=== PATIENT | female | born 1980 | race Caucasian/White ===

== ENCOUNTER 2018-05-23 19:15 | Inpatient (IN) | payer SELFPAY ==
--- NOTE | 2018-05-06 22:55 | NUR ---
MICHELLE LONGORIA Viktoriya admitted to room 432-1, with an admitting diagnosis of ETOH intoxication, on 05/23/18 from ER via , accompanied by ER staff and . MICHELLE LONGORIA introduced to surroundings, call light, bed controls, phone, TV, temperature control, lights, meal times, smoking policy, visitor policy, side rail policy, bathrooms and showers. Patient Rights given to patient in the handbook. MICHELLE LONGORIA verbalizes understanding that [facility] is not responsible for the loss or damage to any personal effects or valuables that are kept in the patients possession during their hospitalization.
[~2018-05-23] VITALS: Ht 157.5 cm; Wt 57.7 kg
[2018-05-23 20:31] LABS: BILIRUBIN,URINE NEGATIVE (NEGATIVE); CLARITY,URINE CLEAR; COLOR,URINE YELLOW; GLUCOSE, URINE (UA) NEGATIVE (NEGATIVE); KETONES,URINE NEGATIVE (NEGATIVE); LEUKOCYTE ESTERASE ,URINE NEGATIVE (NEGATIVE); NITRITE,URINE NEGATIVE (NEGATIVE); PH,URINE 7 (5-9); PROTEIN,URINE NEGATIVE (NEGATIVE); UROBILINOGEN,URINE NORMAL (NORMAL)
[2018-05-23 20:39] LABS: BASOPHILS % (AUTO) 0 % (0-10); EOSINOPHILS # (AUTO) 0.2 10^3/uL (0.0-0.3); EOSINOPHILS % (AUTO) 3 % (0-10); HEMATOCRIT 42 % (35-52); HEMOGLOBIN 14.5 G/DL (11.5-16.0); LYMPHOCYTES # (AUTO) 1.9 X 10^3 (1.0-4.0); LYMPHOCYTES % (AUTO) 22 % (12-44); MEAN CORPUSCULAR HEMOGLOBIN 30 PG (25-34); MEAN CORPUSCULAR HGB CONC 34 G/DL (32-36); MEAN CORPUSCULAR VOLUME 87 FL (80-99); MONOCYTES # (AUTO) 0.4 X 10^3 (0.0-1.0); MONOCYTES % (AUTO) 5 % (0-12); NEUTROPHILS # (AUTO) 5.8 X 10^3 (1.8-7.8); NEUTROPHILS % (AUTO) 70 % (42-75); PLATELET COUNT 220 10^3/uL (130-400); RED BLOOD COUNT 4.82 10^6/uL (4.35-5.85); RED CELL DISTRIBUTION WIDTH 13.1 % (10.0-14.5); WHITE BLOOD COUNT 8.4 10^3/uL (4.3-11.0)
[2018-05-23 20:44] LABS: BACTERIA,URINE TRACE /HPF
[2018-05-23 20:48] LABS: AMPHETAMINE SCREEN, URINE NEGATIVE (NEGATIVE); BARBITURATE SCREEN URINE NEGATIVE (NEGATIVE); BENZODIAZEPINES SCREEN URINE NEGATIVE (NEGATIVE); CANNABINOID SCREEN, URINE NEGATIVE (NEGATIVE); COCAINE SCREEN URINE NEGATIVE (NEGATIVE); METHADONE STAT NEGATIVE (NEGATIVE); METHAMPHETAMINE SCREEN URINE S NEGATIVE (NEGATIVE); OPIATE SCREEN URINE NEGATIVE (NEGATIVE); OXYCODONE STAT NEGATIVE (NEGATIVE); PROPOXYPHENE STAT NEGATIVE (NEGATIVE); TRICYCLIC ANTIDEPRESSANTS SCRE NEGATIVE (NEGATIVE)
[2018-05-23 21:08] LABS: ALANINE AMINOTRANSFERASE 10 U/L (0-55); ALBUMIN 4.2 GM/DL (3.2-4.5); ALKALINE PHOSPHATASE 76 U/L (40-136); BILIRUBIN,TOTAL 0.4 MG/DL (0.1-1.0); BUN/CREATININE RATIO 14; CALCIUM 8.3 MG/DL (8.5-10.1); CARBON DIOXIDE 22 MMOL/L (21-32); CHLORIDE 108 MMOL/L (98-107); CREATININE SERUM 0.72 MG/DL (0.60-1.30); GFR ESTIMATED > 60; GLUCOSE 91 MG/DL (70-105); POTASSIUM 3.5 MMOL/L (3.6-5.0); SALICYLATE < 5.0 MG/DL (5.0-20.0); SODIUM 143 MMOL/L (135-145)
[2018-05-23 21:12] LABS: ACETAMINOPHEN < 10 UG/ML (10-30)
[2018-05-23] MEDS ORDERED: LORazepam INJ 2 MG/ML (ATIVAN) VIAL IVP ONE (21:45)
[2018-05-23] MEDS: NS IV 1000 ML 1,000 ML IV SCH ×2 (22:02→22:09)
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
[2018-05-23 22:55] VITALS: BP 151/86
[2018-05-23] MEDS ORDERED: 1/2 NS IV SOLUTION 1,000 ML IV PRN (23:08)
[2018-05-23] MEDS ORDERED: SENNA W/DOCUSATE (SENOKOT S) TABLET PO PRN (23:15)
[2018-05-23] MEDS ORDERED: ANTACID SUSP 30 ML UDC (MYLANTA) PO PRN (23:15)
[2018-05-23] MEDS ORDERED: D5 1/2 NS 1000 ML IV SOLUTION 1,000 ML IV PRN (23:15)
[2018-05-23] MEDS ORDERED: ONDANSETRON 4 MG/2 ML (SDV) Z0FRAN IV PRN (23:15)
[2018-05-23] MEDS ORDERED: LORazepam INJ 2 MG/ML (ATIVAN) VIAL IM/IV PRN (23:15)
[2018-05-23] MEDS ORDERED: D5 1/2 NS W/KCL 20 MEQ/L 1,000 ML IV ONE (23:22)
[2018-05-23] MEDS: D5 1/2 NS W/KCL 20 MEQ/L 1,000 ML IV SCH (23:33)
[2018-05-23] MEDS ORDERED: LORazepam INJ 2 MG/ML (ATIVAN) VIAL ONE (23:58)
[2018-05-24] VITALS (12 sets, daily range): BP systolic 92–187; BP diastolic 52–88
[2018-05-24] MEDS: LORazepam INJ 2 MG/ML (ATIVAN) VIAL IV PRN ×10 (00:07→20:05)
[2018-05-24 05:22] LABS: BASOPHILS % (AUTO) 0 % (0-10); EOSINOPHILS # (AUTO) 0.2 10^3/uL (0.0-0.3); EOSINOPHILS % (AUTO) 3 % (0-10); HEMATOCRIT 34 % (35-52); HEMOGLOBIN 11.9 G/DL (11.5-16.0); LYMPHOCYTES # (AUTO) 2.4 X 10^3 (1.0-4.0); LYMPHOCYTES % (AUTO) 43 % (12-44); MEAN CORPUSCULAR HEMOGLOBIN 31 PG (25-34); MEAN CORPUSCULAR HGB CONC 35 G/DL (32-36); MEAN CORPUSCULAR VOLUME 88 FL (80-99); MEAN PLATELET VOLUME 10.9 FL (7.4-10.4); MONOCYTES # (AUTO) 0.5 X 10^3 (0.0-1.0); MONOCYTES % (AUTO) 9 % (0-12); NEUTROPHILS # (AUTO) 2.5 X 10^3 (1.8-7.8); NEUTROPHILS % (AUTO) 45 % (42-75); PLATELET COUNT 195 10^3/uL (130-400); RED CELL DISTRIBUTION WIDTH 13.2 % (10.0-14.5); WHITE BLOOD COUNT 5.5 10^3/uL (4.3-11.0)
[2018-05-24 05:52] LABS: ALANINE AMINOTRANSFERASE 8 U/L (0-55); ALBUMIN 3.6 GM/DL (3.2-4.5); ALKALINE PHOSPHATASE 69 U/L (40-136); BILIRUBIN,TOTAL 0.2 MG/DL (0.1-1.0); BUN/CREATININE RATIO 16; CALCIUM 7.9 MG/DL (8.5-10.1); CARBON DIOXIDE 21 MMOL/L (21-32); CHLORIDE 110 MMOL/L (98-107); CREATININE SERUM 0.68 MG/DL (0.60-1.30); GFR ESTIMATED > 60; GLUCOSE 102 MG/DL (70-105); POTASSIUM 3.7 MMOL/L (3.6-5.0); SODIUM 142 MMOL/L (135-145); TOTAL PROTEIN 6.1 GM/DL (6.4-8.2)
[2018-05-24] MEDS: D5 1/2 NS W/KCL 20 MEQ/L 1,000 ML IV SCH ×3 (06:38→19:52)
[2018-05-24] MEDS ORDERED: FLU QUADRIvalent (5+ YOA) 2018-2019 (AFLURIA) 0.5 ML IM ONE (07:30)
[2018-05-24] MEDS ORDERED: THIAMINE INJECTION 100 MG, FOLIC ACID INJECTION 1 MG, MAGNESIUM SULFATE 2 GM, VITAMIN M... IV SCH ×5 (09:00)
[2018-05-24] MEDS: ONDANSETRON 4 MG (ZOFRAN) ORAL DISSOLVE TAB SL PRN ×3 (10:54→20:04)
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
[2018-05-24] MEDS: ACETAMINOPHEN 500 MG TAB (TYLENOL) PO PRN ×2 (14:51→20:04)
[2018-05-24] MEDS: NICOTINE 14 MG (NICODERM) PATCH TD SCH (15:33)
[2018-05-24] MEDS: LORazepam 1 MG (ATIVAN) TAB PO PRN (16:37)
[2018-05-24] MEDS: ONDANSETRON 4 MG/2 ML (SDV) Z0FRAN IV PRN (17:43)
[2018-05-25] MEDS: LORazepam INJ 2 MG/ML (ATIVAN) VIAL IV PRN ×3 (00:04→08:09)
[2018-05-25] MEDS: ONDANSETRON 4 MG/2 ML (SDV) Z0FRAN IV PRN ×2 (00:04→04:32)
[2018-05-25] MEDS: D5 1/2 NS W/KCL 20 MEQ/L 1,000 ML IV SCH ×2 (00:05→04:33)
[2018-05-25] MEDS: ONDANSETRON 4 MG (ZOFRAN) ORAL DISSOLVE TAB SL PRN ×3 (02:14→14:32)
[2018-05-25 03:51] VITALS: BP 187/88
--- NOTE | 2018-05-25 04:10 | NUR ---
Dr. Jacobson notified of pt being bradycardic at times with HR dipping to 37. also informed of BP elevated at 187/88 and pt's agitation. Instructed to give 1 mg IV ativan at this time.
[2018-05-25] MEDS: ACETAMINOPHEN 500 MG TAB (TYLENOL) PO PRN ×2 (04:32→10:49)
[2018-05-25 08:00] VITALS: BP 160/90
[2018-05-25] MEDS ORDERED: THIAMINE INJECTION 100 MG, FOLIC ACID INJECTION 1 MG, MAGNESIUM SULFATE 2 GM, VITAMIN M... IV SCH ×5 (09:00)
[2018-05-25] MEDS ORDERED: NICOTINE PATCH REMOVAL TP SCH (09:00)
--- NOTE | 2018-05-25 10:10 | NUR ---
PATIENT STATES SHE IS NOT CURRENTLY TAKING ANY MEDICATIONS AT THIS TIME. SHE HAS MOVED HERE FROM [place] BUT WITH HER HUSBANDS JOB THEY MOVE AROUND A LOT. SHE LISTS WHAT SHE IS SUPPOSED TO BE TAKING GABAPENTIN, BENTYL, SEROQUEL, LYRICA, AND KLONOPIN. I SET HER PROFILE TO NO MEDICATIONS AT THIS TIME.
[2018-05-25] MEDS: LORazepam 1 MG (ATIVAN) TAB PO PRN ×2 (10:48→14:32)
[2018-05-25] MEDS: NICOTINE 14 MG (NICODERM) PATCH TD SCH (10:48)
[2018-05-25 12:00] VITALS: BP 114/73
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
--- NOTE | 2018-05-25 14:23 | Progress Note-Hospitalist ---
Progress Note Progress Notes/Assess & Plan Date Seen 05/25/18 Time Seen by Provider: 14:19 Assessment & Plan The patient reports that she has been arranging for outpatient care. She believes this will need to focus as much on PTSD and her childhood as on her substance abuse. She otherwise wishes to go. Physical exam: She is alert and oriented. Lungs are clear to auscultation. CV is regular without murmur. Abdomen is soft. Extremities show no pedal edema. Impression: Multi substance abuse presently alcohol. 2.history of PTSD. Plan: Discharge. See discharge sequence for medications and routines. CORY FRAZIER MD May 25, 2018 14:23
[2018-05-25] MEDS ORDERED: LORA-405 SL (14:29)
[2018-05-25] MEDS ORDERED: PROM25TA14 PO (14:29)
[2018-05-25] MEDS ORDERED: HYOS0.3732 PO (14:29)
[2018-05-25] MEDS ORDERED: GABA-486 PO (14:29)
--- NOTE | 2018-05-25 14:34 | Discharge Instructions ---
Discharge Instructions Discharge Medications New, Converted or Re-Newed RX: RX on Chart Patient Instructions Patient Instructions: Medications as on the discharge sequence. No alcohol Continue your search for inpatient facility Activity & Diet Discharge Diet: No Restrictions Activity as Tolerated: Yes CORY FRAZIER MD May 25, 2018 14:34
[2018-05-25 15:05] VITALS: BP 114/73
--- NOTE | 2018-05-25 15:10 | NUR ---
Discharge instructions given and discussed with patient. IV removed with catheter intact. Pt. left ambulatory accompanied by staff.
--- NOTE | 2018-05-27 13:58 | Physician Query-Final Dx ---
Final Diagnosis Give Final Diagnosis Please give Final Diagnosis AMMON FIERRO May 27, 2018 13:58
== END 2018-05-25 15:10 | disposition home or self-care (01) | DRG 897 ==
LOC: ER 19:17 → EDBD 19:17 → 4TH 21:44
PROVIDERS: ADMIT Family Medicine; ATTEND Family Medicine
DX: F10.129 Alcohol abuse with intoxication, unspecified (principal); Y90.8 Blood alcohol level of 240 mg/100 ml or more; F43.12 Post-traumatic stress disorder, chronic; F32.9 Major depressive disorder, single episode, unspecified; F41.9 Anxiety disorder, unspecified; F17.210 Nicotine dependence, cigarettes, uncomplicated; K58.9 Irritable bowel syndrome, unspecified; Z62.810 Personal history of physical and sexual abuse in childhood
CPT/HCPCS: 36415; 80053; 80306; 80320; 80329; 81000; 84703; 85025; 93005; 93041

== ENCOUNTER 2018-05-26 20:00 | Emergency (ER) | payer SELFPAY ==
[~2018-05-26] VITALS: Ht 157.5 cm; Wt 61.2 kg
[~2018-05-26 20:00] MED LIST: GABA-486 PO; HYOS0.3732 PO; LORA-405 SL; PROM25TA14 PO
[2018-05-26] MEDS ORDERED: LORazepam 0.5 MG (ATIVAN) TABLET ONE (21:14)
[2018-05-26] MEDS ORDERED: LORazepam 1 MG (ATIVAN) TAB PO ONE (21:15)
[2018-05-26 21:18] LABS: BILIRUBIN,URINE NEGATIVE (NEGATIVE); CLARITY,URINE CLEAR; COLOR,URINE YELLOW; GLUCOSE, URINE (UA) NEGATIVE (NEGATIVE); KETONES,URINE NEGATIVE (NEGATIVE); LEUKOCYTE ESTERASE ,URINE 1+ (NEGATIVE); NITRITE,URINE NEGATIVE (NEGATIVE); PH,URINE 7 (5-9); PROTEIN,URINE NEGATIVE (NEGATIVE); UROBILINOGEN,URINE NORMAL (NORMAL)
[2018-05-26] MEDS ORDERED: LORazepam INJ 2 MG/ML (ATIVAN) VIAL ONE (21:21)
[2018-05-26 21:28] LABS: WBC,URINE 0-2 /HPF
[2018-05-26] MEDS ORDERED: LORazepam INJ 2 MG/ML (ATIVAN) VIAL IM ONE (21:30)
[2018-05-26 21:31] LABS: AMPHETAMINE SCREEN, URINE NEGATIVE (NEGATIVE); BARBITURATE SCREEN URINE NEGATIVE (NEGATIVE); BENZODIAZEPINES SCREEN URINE POSITIVE (NEGATIVE); CANNABINOID SCREEN, URINE NEGATIVE (NEGATIVE); COCAINE SCREEN URINE NEGATIVE (NEGATIVE); METHADONE STAT NEGATIVE (NEGATIVE); METHAMPHETAMINE SCREEN URINE S NEGATIVE (NEGATIVE); OPIATE SCREEN URINE NEGATIVE (NEGATIVE); OXYCODONE STAT NEGATIVE (NEGATIVE); PROPOXYPHENE STAT NEGATIVE (NEGATIVE); TRICYCLIC ANTIDEPRESSANTS SCRE NEGATIVE (NEGATIVE)
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
[2018-05-27 00:26] VITALS: BP 115/88
== END 2018-05-27 00:26 | disposition short-term general hospital (02) ==
LOC: EDUNIT# 20:00 → ER 20:03
DX: F10.231 Alcohol dependence with withdrawal delirium (principal); F43.10 Post-traumatic stress disorder, unspecified; G40.909 Epilepsy, unspecified, not intractable, without status epilepticus; K58.9 Irritable bowel syndrome, unspecified; F41.9 Anxiety disorder, unspecified; F31.9 Bipolar disorder, unspecified; F17.210 Nicotine dependence, cigarettes, uncomplicated; Z90.89 Acquired absence of other organs; Z87.442 Personal history of urinary calculi; Z87.440 Personal history of urinary (tract) infections; Z98.890 Other specified postprocedural states; Z90.710 Acquired absence of both cervix and uterus; Z91.410 Personal history of adult physical and sexual abuse
CPT/HCPCS: 80306; 81000

== ENCOUNTER 2018-08-02 14:38 | Emergency (ER) | payer SELFPAY ==
[~2018-08-02] VITALS: Ht 157.5 cm; Wt 61.2 kg
[2018-08-02] MEDS ORDERED: NS IV 1000 ML 1,000 ML IV SCH (14:47)
[2018-08-02] MEDS ORDERED: PRAZ5CAP2 PO (14:54)
[2018-08-02] MEDS ORDERED: PRAZ1CAP2 PO (14:54)
[2018-08-02 15:12] LABS: BILIRUBIN,URINE NEGATIVE (NEGATIVE); CLARITY,URINE CLEAR; COLOR,URINE YELLOW; GLUCOSE, URINE (UA) NEGATIVE (NEGATIVE); KETONES,URINE NEGATIVE (NEGATIVE); LEUKOCYTE ESTERASE ,URINE 2+ (NEGATIVE); NITRITE,URINE NEGATIVE (NEGATIVE); PH,URINE 6 (5-9); PROTEIN,URINE 2+ (NEGATIVE); UROBILINOGEN,URINE 1 MG/DL (NORMAL)
[2018-08-02 15:18] LABS: RBC,URINE RARE /HPF
[2018-08-02 15:19] LABS: BACTERIA,URINE TRACE /HPF
[2018-08-02 15:31] LABS: AMPHETAMINE SCREEN, URINE NEGATIVE (NEGATIVE); BARBITURATE SCREEN URINE NEGATIVE (NEGATIVE); BENZODIAZEPINES SCREEN URINE NEGATIVE (NEGATIVE); CANNABINOID SCREEN, URINE NEGATIVE (NEGATIVE); COCAINE SCREEN URINE NEGATIVE (NEGATIVE); METHADONE STAT NEGATIVE (NEGATIVE); METHAMPHETAMINE SCREEN URINE S NEGATIVE (NEGATIVE); OPIATE SCREEN URINE NEGATIVE (NEGATIVE); OXYCODONE STAT NEGATIVE (NEGATIVE); PROPOXYPHENE STAT NEGATIVE (NEGATIVE); TRICYCLIC ANTIDEPRESSANTS SCRE NEGATIVE (NEGATIVE)
[2018-08-02] MEDS ORDERED: LORazepam 0.5 MG (ATIVAN) TABLET PO ONE (15:45)
[2018-08-02 16:03] LABS: BASOPHILS % (AUTO) 0 % (0-10); EOSINOPHILS # (AUTO) 0.3 10^3/uL (0.0-0.3); EOSINOPHILS % (AUTO) 6 % (0-10); HEMATOCRIT 40 % (35-52); HEMOGLOBIN 13.1 G/DL (11.5-16.0); LYMPHOCYTES # (AUTO) 2.2 X 10^3 (1.0-4.0); LYMPHOCYTES % (AUTO) 40 % (12-44); MEAN CORPUSCULAR HEMOGLOBIN 30 PG (25-34); MEAN CORPUSCULAR HGB CONC 33 G/DL (32-36); MEAN CORPUSCULAR VOLUME 91 FL (80-99); MEAN PLATELET VOLUME 10.7 FL (7.4-10.4); MONOCYTES # (AUTO) 0.7 X 10^3 (0.0-1.0); MONOCYTES % (AUTO) 13 % (0-12); NEUTROPHILS # (AUTO) 2.2 X 10^3 (1.8-7.8); NEUTROPHILS % (AUTO) 40 % (42-75); PLATELET COUNT 197 10^3/uL (130-400); RED CELL DISTRIBUTION WIDTH 13.8 % (10.0-14.5); WHITE BLOOD COUNT 5.4 10^3/uL (4.3-11.0)
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
[2018-08-02 16:23] LABS: ALANINE AMINOTRANSFERASE 14 U/L (0-55); ALBUMIN 4.5 GM/DL (3.2-4.5); ALKALINE PHOSPHATASE 79 U/L (40-136); BILIRUBIN,TOTAL 0.3 MG/DL (0.1-1.0); BUN/CREATININE RATIO 16; CALCIUM 9.2 MG/DL (8.5-10.1); CARBON DIOXIDE 25 MMOL/L (21-32); CHLORIDE 107 MMOL/L (98-107); GFR ESTIMATED > 60; GLUCOSE 72 MG/DL (70-105); POTASSIUM 3.2 MMOL/L (3.6-5.0); SALICYLATE < 5.0 MG/DL (5.0-20.0); SODIUM 145 MMOL/L (135-145); TOTAL PROTEIN 7.5 GM/DL (6.4-8.2)
[2018-08-02 16:25] LABS: ACETAMINOPHEN < 10 UG/ML (10-30)
--- NOTE | 2018-08-02 16:30 | NUR ---
PATIENT WANTED TO GO OUT SIDE WITH IV IN PLACE INFORMED HER SHE COULD NOT WANTED TO TALK TO . IN CAR. WANTEDTO TAKE IV OUT.
--- NOTE | 2018-08-02 16:39 | NUR ---
RETURN TO ROOM FOOD TRAY GIVEN
--- NOTE | 2018-08-02 16:40 | NUR ---
IV REMOVED PATIENT LEFT AND WENT OUTSIDE MAGNUS WILDLIFE MANAGEMENT PROFESSOR NOTIFIED.
--- NOTE | 2018-08-02 16:49 | NUR ---
Shekhar kyledanita in EDM - 08/02/18 at 1803 by PMCSAMURE ON DISCHARGE PATIENT WAS ASKED IF SHE HAD ANYMORE VODKA ON HER SHE GAVE THIS NURSE MORE VODKA BOTH BOTTLES DUMPED DOWN DRAIN. WITNESSED BY MAGNUS DAS APRN AND DR BENEDICT.
--- NOTE | 2018-08-02 17:44 | NUR ---
MAGNUS DAS TO ROOM FOUND PATIENT DRINKING 1/2 PINT OF VODKA PATIENT REPORTED IT WAS HALF FULL WHEN SHE STARTED.
[2018-08-02] MEDS ORDERED: LORA-404 PO (17:47)
[2018-08-02 17:49] VITALS: BP 143/90
--- NOTE | 2018-08-02 17:49 | NUR ---
ON DISCHARGE PATIENT WAS ASKED IF SHE HAD ANYMORE VODKA ON HER SHE GAVE THIS NURSE MORE VODKA BOTH BOTTLES DUMPED DOWN DRAIN. WITNESSED BY MAGNUS DAS APRN AND DR BENEDICT. Addendum: 08/02/18 at 1806 by PMCCLURE PATIENT LEFT THINGS IN ROOM WHILE SHE WALKED OVER TO [facility] TO GET RX FILLED.
--- NOTE | 2018-08-02 18:19 | NUR ---
PATIENT CAME BACK TO GET BELONGINGS.
== END 2018-08-02 17:49 | disposition home or self-care (01) ==
LOC: EDUNIT# 14:38 → ER 14:39
DX: F10.20 Alcohol dependence, uncomplicated (principal); K21.9 Gastro-esophageal reflux disease without esophagitis; K58.9 Irritable bowel syndrome, unspecified; G40.909 Epilepsy, unspecified, not intractable, without status epilepticus; F41.9 Anxiety disorder, unspecified; F32.9 Major depressive disorder, single episode, unspecified; F43.10 Post-traumatic stress disorder, unspecified; F17.210 Nicotine dependence, cigarettes, uncomplicated; Z88.8 Allergy status to other drugs, medicaments and biological substances; Z90.710 Acquired absence of both cervix and uterus; Z87.442 Personal history of urinary calculi; Z87.440 Personal history of urinary (tract) infections; Z90.89 Acquired absence of other organs
CPT/HCPCS: 36415; 80053; 80306; 80320; 80329; 81000; 84703; 85025; 93005; 96360; 96361

== ENCOUNTER 2018-08-02 23:21 | Emergency (ER) | payer SELFPAY ==
[~2018-08-02] VITALS: Ht 162.6 cm; Wt 68.0 kg
[~2018-08-02 23:21] MED LIST changes: +LORA-404 PO; +PRAZ1CAP2 PO; +PRAZ5CAP2 PO
[2018-08-03] MEDS ORDERED: LACTATED RINGERS 1,000 ML IV ONE ×3 (01:39→03:54)
[2018-08-03 02:06] LABS: BASOPHILS % (AUTO) 0 % (0-10); EOSINOPHILS # (AUTO) 0.4 10^3/uL (0.0-0.3); EOSINOPHILS % (AUTO) 8 % (0-10); HEMATOCRIT 39 % (35-52); HEMOGLOBIN 13.6 G/DL (11.5-16.0); LYMPHOCYTES # (AUTO) 2.5 X 10^3 (1.0-4.0); LYMPHOCYTES % (AUTO) 48 % (12-44); MEAN CORPUSCULAR HEMOGLOBIN 31 PG (25-34); MEAN CORPUSCULAR HGB CONC 35 G/DL (32-36); MEAN CORPUSCULAR VOLUME 89 FL (80-99); MEAN PLATELET VOLUME 10.7 FL (7.4-10.4); MONOCYTES # (AUTO) 0.4 X 10^3 (0.0-1.0); MONOCYTES % (AUTO) 8 % (0-12); NEUTROPHILS # (AUTO) 1.9 X 10^3 (1.8-7.8); NEUTROPHILS % (AUTO) 36 % (42-75); PLATELET COUNT 204 10^3/uL (130-400); RED CELL DISTRIBUTION WIDTH 13.8 % (10.0-14.5); WHITE BLOOD COUNT 5.3 10^3/uL (4.3-11.0)
[2018-08-03 02:26] LABS: BILIRUBIN,URINE NEGATIVE (NEGATIVE); CLARITY,URINE CLEAR; COLOR,URINE YELLOW; GLUCOSE, URINE (UA) NEGATIVE (NEGATIVE); KETONES,URINE NEGATIVE (NEGATIVE); LEUKOCYTE ESTERASE ,URINE 1+ (NEGATIVE); NITRITE,URINE NEGATIVE (NEGATIVE); PH,URINE 6 (5-9); PROTEIN,URINE NEGATIVE (NEGATIVE); UROBILINOGEN,URINE NORMAL (NORMAL)
[2018-08-03 02:27] LABS: ALANINE AMINOTRANSFERASE 12 U/L (0-55); ALBUMIN 4.4 GM/DL (3.2-4.5); ALKALINE PHOSPHATASE 78 U/L (40-136); BILIRUBIN,TOTAL 0.2 MG/DL (0.1-1.0); BUN/CREATININE RATIO 13; CALCIUM 9.2 MG/DL (8.5-10.1); CARBON DIOXIDE 19 MMOL/L (21-32); CHLORIDE 110 MMOL/L (98-107); GFR ESTIMATED > 60; GLUCOSE 90 MG/DL (70-105); POTASSIUM 3.8 MMOL/L (3.6-5.0); SALICYLATE < 5.0 MG/DL (5.0-20.0); SODIUM 145 MMOL/L (135-145); TOTAL PROTEIN 7.3 GM/DL (6.4-8.2)
[2018-08-03 02:33] LABS: BACTERIA,URINE MODERATE /HPF; SQUAMOUS EPITHELIAL CELL,UR RARE /HPF; WBC,URINE RARE /HPF
[2018-08-03 02:36] LABS: AMPHETAMINE SCREEN, URINE NEGATIVE (NEGATIVE); BARBITURATE SCREEN URINE NEGATIVE (NEGATIVE); BENZODIAZEPINES SCREEN URINE POSITIVE (NEGATIVE); CANNABINOID SCREEN, URINE NEGATIVE (NEGATIVE); COCAINE SCREEN URINE NEGATIVE (NEGATIVE); METHADONE STAT NEGATIVE (NEGATIVE); METHAMPHETAMINE SCREEN URINE S NEGATIVE (NEGATIVE); OPIATE SCREEN URINE NEGATIVE (NEGATIVE); OXYCODONE STAT NEGATIVE (NEGATIVE); PROPOXYPHENE STAT NEGATIVE (NEGATIVE); TRICYCLIC ANTIDEPRESSANTS SCRE NEGATIVE (NEGATIVE)
[2018-08-03 02:46] LABS: TSH (THYROID ANALYZER) 3.47 UIU/ML (0.35-4.94)
[2018-08-03 02:49] LABS: ACETAMINOPHEN < 10 UG/ML (10-30)
[2018-08-03] MEDS ORDERED: AMMONIA INHALATION 0.33 ML AMP ONE ×2 (03:40→03:43)
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
[2018-08-03 04:36] VITALS: BP 113/81
--- NOTE | 2018-08-03 04:38 | NUR ---
pt ambulated out to discharge without difficutly.
== END 2018-08-03 04:36 | disposition home or self-care (01) ==
LOC: EDUNIT# 23:21 → ER 23:22
DX: F10.20 Alcohol dependence, uncomplicated (principal); G40.909 Epilepsy, unspecified, not intractable, without status epilepticus; K21.9 Gastro-esophageal reflux disease without esophagitis; K58.9 Irritable bowel syndrome, unspecified; F41.9 Anxiety disorder, unspecified; F43.10 Post-traumatic stress disorder, unspecified; F32.9 Major depressive disorder, single episode, unspecified; F17.210 Nicotine dependence, cigarettes, uncomplicated; Z88.8 Allergy status to other drugs, medicaments and biological substances; Z87.440 Personal history of urinary (tract) infections; Z87.442 Personal history of urinary calculi; Z90.710 Acquired absence of both cervix and uterus; Z90.89 Acquired absence of other organs
CPT/HCPCS: 36415; 51701; 80053; 80306; 80320; 80329; 81000; 84443; 84703; 85025; 93005; 93041

== ENCOUNTER 2018-08-07 20:57 | Emergency (ER) | payer SELFPAY ==
[~2018-08-07] VITALS: Ht 157.5 cm; Wt 61.4 kg
--- NOTE | 2018-08-07 21:17 | ED Trauma-Multisystem ---
General Chief Complaint: Trauma-Non Activation Stated Complaint: FELL 08/04 - NECK PAIN Source of Information: Patient Exam Limitations: No Limitations History of Present Illness Date Seen by Provider: Aug 07, 2018 Time Seen by Provider: 21:05 Initial Comments 38-year-old female who presents to the emergency room with complaints of right sided neck pain that radiates down to her right shoulder after a fall in the shower on 08/04/18. She reports that after the fall she went to [place] emergency room and was seen and evaluated for her left foot pain which ended in a fracture of the left foot and the patient has a walking boot in place on arrival to the emergency room. She reports that she did not mention hitting her head or neck at the time but started developing pain the day after her fall. Occurred: Other (3 days ago) Pain/Injury Location: Neck Loss of Consciousness: Unsure Associated Symptoms (Fall): Neck Pain Allergies and Home Medications Allergies Coded Allergies: ketorolac (Verified Allergy, Unknown, 08/07/18) omeprazole (Unverified Adverse Reaction, Unknown, 08/02/18) Home Medications Gabapentin 100 Mg Capsule, 100 MG PO Q8H Prescribed by: CORY FRAZIER on 05/25/18 1429 Hyoscyamine Sulfate 0.375 Mg Tab.er.12h, 0.375 MG PO twice a day Prescribed by: CORY FRAZIER on 05/25/18 1429 Lorazepam 0.5 Mg Tablet, 0.5 MG PO TID PRN for ANXIETY Prescribed by: MAGNUS DAS on 08/02/18 1747 Prazosin HCl 1 Mg Capsule, 1 MG PO DAILY, (Reported) Prazosin HCl 5 Mg Capsule, 5 MG PO HS, (Reported) Patient Home Medication List Home Medication List Reviewed: Yes Review of Systems Review of Systems Constitutional: see HPI; No chills, No fever Musculoskeletal: see HPI, neck pain All Other Systems Reviewed Negative Unless Noted: Yes Past Dmxvslb-Ahvyhr-Wstsqb Hx Past Med/Social Hx: Reviewed Nursing Past Med/Soc Hx Patient Social History Alcohol Beverage of Choice: Vodka Drug of Choice: RX DRUGS, COCAINE, HEROIN, THC BY HISTORY Type Used: Cigarettes Recent Foreign Travel: No Contact w/Someone Who Travel: No Recent Hopitalizations: Yes ([facility] 2 MONTHS AGO) Immunizations Up To Date PED Vaccines UTD: Yes Seasonal Allergies Seasonal Allergies: No (LAPARASCOPIES FOR ENDOMETRIOSIS) Past Medical History Surgeries: Yes Section, Hysterectomy, Tonsillectomy Respiratory: No Cardiac: Yes Palpitations Neurological: Yes (ALCOHOL WITHDRAWL SEIZURES) 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 Genitourinary: Yes Kidney Infection, Kidney Stones, UTI-Chronic Gastrointestinal: Yes Gastroesophageal Reflux, Irritable Bowel Musculoskeletal: Yes Degenerate Disk Disease, Fibromyalgia, Chronic Back Pain Endocrine: No (HYPOGLYCEMIC) HEENT: No Cancer: No Psychosocial: Yes (ALCOHOLISM) Anxiety, PTSD, Depression Integumentary: No Blood Disorders: No Family Medical History Reviewed Nursing Family Hx Alcoholism 19 FATHER 19 MOTHER G8 BROTHER G8 SISTER Diabetes mellitus 19 MOTHER FH: bipolar disorder G8 SISTER FH: depression 19 MOTHER G8 SISTER FH: emphysema 19 MOTHER Hypertension 19 MOTHER Substance abuse 19 FATHER 19 MOTHER G8 BROTHER G8 SISTER Physical Exam Vital Signs Vital Signs - First Documented 08/07/18 21:04 Temp 96.7 Pulse 58 Resp 18 B/P (MAP) 160/95 (116) Pulse Ox 99 O2 Delivery Room Air Height, Weight, BMI Height: 5'4.00" Weight: 150lbs. 4.8oz. 68.291930pl; 23.3 BMI Method:Estimated General Appearance: No Apparent Distress, WD/WN Head: No Evidence of Injury Eyes: Bilateral Eye Normal Inspection, Bilateral Eye PERRL, Bilateral Eye EOMI Neck: Full Range of Motion, Normal Inspection, Supple, Tender Midline Cardiovascular: Regular Rate, Rhythm, No Edema, No Gallop, No JVD, No Murmur, Normal Peripheral Pulses Respiratory: Chest Non Tender, Lungs Clear, Normal Breath Sounds, No Accessory Muscle Use, No Respiratory Distress Extremity: Normal Capillary Refill, Other (walking boot on left lower extremity ) Neurologic/Psychiatric: Alert, Oriented x3, Normal Mood/Affect Skin: Normal Color, Warm/Dry Gibson Coma Score Best Eye Response (Perico): (4) Open Spontaneously Best Verbal Response (Gibson): (5) Oriented Best Motor Response (Perico): (6) Obeys Commands Gibson Total: 15 Progress/Results/Core Measures Results/Orders My Orders Orders - LUCRECIA MATTHEWS Ct Head/Cervical Spine Wo (08/07/18 21:09) Cyclobenzaprine Tablet (Flexeril Tablet) (08/07/18 22:30) Vital Signs/I&O 08/07/18 08/07/18 21:04 22:45 Temp 96.7 96.7 Pulse 58 51 Resp 18 18 B/P (MAP) 160/95 (116) 153/92 (112) Pulse Ox 99 99 O2 Delivery Room Air Room Air Departure Impression Primary Impression: Sprain of cervical neck Disposition: HOME, SELF-CARE Condition: Stable/Unchanged Departure-Patient Inst. Decision time for Depature: 22:09 Referrals: [facility] (PCP/Family) Primary Care Physician Patient Instructions: Cervical Muscle Strain (DC) Add. Discharge Instructions: You may alternate ice and heat at 20 minute intervals to alleviate pain. Ibuprofen and Tylenol as directed by the bottle for pain relief. Follow-up with your primary care provider within 1 week for recheck. Return back to the emergency room for worsening symptoms or concerns as needed. All discharge instructions reviewed with patient and/or family. Voiced understanding. LUCRECIA MATTHEWS Aug 07, 2018 21:17
[2018-08-07] MEDS ORDERED: CYCLOBENZAPRINE 10 MG (FLEXERIL) TAB PO SCH (22:30)
[2018-08-07 22:45] VITALS: BP 153/92
--- NOTE | 2018-08-08 06:02 | Diagnostic Imaging Report ---
PROCEDURE: CT head and CT cervical spine without contrast. TECHNIQUE: Multiple contiguous axial images were obtained through the brain and cervical spine without the use of intravenous contrast. Sagittal and coronal reformations through the cervical spine were then performed. Auto Exposure Controls were utilized during the CT exam to meet ALARA standards for radiation dose reduction. INDICATION: Head and neck pain after fall. FINDINGS: The ventricles and sulci are within normal limits. There is no hydrocephalus or cerebral edema. There is no midline shift or mass effect. There is no intracranial mass, hemorrhage or extra-axial fluid collection. The visualized paranasal sinuses and mastoid air cells are clear. No fractures are identified. CERVICAL SPINE: Alignment is normal. There is no fracture or traumatic subluxation. The prevertebral soft tissues are within normal limits. The odontoid is intact and the lateral masses are well aligned. There are no soft tissue abnormalities. IMPRESSION: 1. No acute intracranial process. 2. No focal abnormality in the cervical spine. Dictated by: Dictated on workstation # [id number]
== END 2018-08-07 22:47 | disposition home or self-care (01) ==
LOC: EDUNIT# 20:57 → ER 20:59
DX: S13.4XXA Sprain of ligaments of cervical spine, initial encounter (principal); G40.909 Epilepsy, unspecified, not intractable, without status epilepticus; K21.9 Gastro-esophageal reflux disease without esophagitis; K58.9 Irritable bowel syndrome, unspecified; F41.9 Anxiety disorder, unspecified; F32.9 Major depressive disorder, single episode, unspecified; F10.20 Alcohol dependence, uncomplicated; F43.10 Post-traumatic stress disorder, unspecified; Z87.448 Personal history of other diseases of urinary system; Z87.440 Personal history of urinary (tract) infections; Z88.4 Allergy status to anesthetic agent; Z98.890 Other specified postprocedural states; Z90.710 Acquired absence of both cervix and uterus; Z90.89 Acquired absence of other organs; Z88.8 Allergy status to other drugs, medicaments and biological substances; W19.XXXA Unspecified fall, initial encounter; Y92.002 Bathroom of unspecified non-institutional (private) residence as the place of occurrence of the external cause
CPT/HCPCS: 70450; 72125